=== PATIENT | female | born 1940 | race Caucasian/White ===

== ENCOUNTER 2017-10-20 06:25 | Inpatient (IN) | payer OTHER ==
[2017-10-12 12:52] VITALS: BMI 23.9
--- NOTE | 2017-10-19 10:49 | HP ---
Satellite [facility] - Chief Complaint Chief Complaint: right hip pain - Past Medical History Allergies/Adverse Reactions: Allergies Allergy/AdvReac Type Severity Reaction Status Date / Time Penicillins Allergy Severe Itching Verified 10/12/17 12:41 - Current Medications Current Medications: Home Medications Medication Instructions Recorded Acetaminophen [Tylenol -] 500 mg PO Q6H PRN 10/12/17 Aspirin [Aspirin EC] 81 mg PO DAILY 10/12/17 Docusate Sodium [Colace] 100 mg PO ASDIR PRN 10/12/17 Ferrous Sulfate [Feosol] 325 mg PO DAILY 10/12/17 Letrozole [Femara -] 2.5 mg PO DAILY 10/12/17 Oxycodone HCl 5 mg PO ASDIR PRN 10/12/17 Valsartan 160 mg PO DAILY 10/12/17 Satellite Physical Exam - Physical Examination General Appearance: Well Nourished, Well Developed, Alert & Oriented x3 ENT: Clear Lung: Normal air movement Heart: Regular rate & rhythm Extremities: Other (right hip- + ttp, decr rom, nvi xrays show grade 4 djd) Neurological: Intact, Alert, Oriented Satellite Impression/Plan - Impression/Plan Impression: right hip djd Operative Procedure: right jayson thr Date to be Performed: 10/20/17
[2017-10-20] MEDS ORDERED: GABAPENTIN 300 MG CAPSULE (FP) PO ONE (06:41)
[2017-10-20] MEDS ORDERED: CELECOXIB 200 MG CAPSULE PO ONE (06:41)
[2017-10-20] MEDS ORDERED: TRANEXAMIC ACID 1000 MG/10 ML VIAL IVPUSH ONE (06:41)
[2017-10-20] MEDS ORDERED: CEFAZOLIN 1 GM/D5W 1 GM/50 ML BAG IVPB ONE (06:41)
[2017-10-20] MEDS ORDERED: CELECOXIB 200 MG CAPSULE ONE (06:44)
[2017-10-20] MEDS ORDERED: GABAPENTIN 300 MG CAPSULE (FP) ONE (06:44)
[2017-10-20] MEDS ORDERED: DEXAMETHASONE SOD PHOSPHATE/PF 10 MG/ML SDV ONE (06:49)
[2017-10-20] MEDS ORDERED: EPINEPHrine/PF 1 MG/1 ML (1:1,000) AMPULE ONE (06:49)
[2017-10-20] MEDS ORDERED: BUPIVACAINE HCL/PF (5 MG/ML) 30 ML VIAL IJ ONE (06:49)
[2017-10-20] MEDS ORDERED: MIDAZOLAM HCL 2 MG/2 ML SINGLE DOSE VIAL ONE ×2 (06:49→07:32)
[2017-10-20] MEDS ORDERED: ceFAZolin SODIUM 1 GM VIAL ONE ×2 (07:05→07:32)
[2017-10-20] MEDS ORDERED: VANCOMYCIN 1,000 MG VIAL (RESTRICTED TO ID ONLY) ONE (07:05)
[2017-10-20] MEDS ORDERED: TRANEXAMIC ACID 1000 MG/10 ML VIAL ONE (07:32)
[2017-10-20] MEDS ORDERED: SUCCINYLCHOLINE CHLORIDE 200 MG/10 ML VIAL ONE (07:33)
[2017-10-20] MEDS ORDERED: PHENYLEPHRINE HCL 10 MG/1 ML SINGLE DOSE VIAL ONE (08:22)
[2017-10-20] MEDS ORDERED: ceFAZolin SODIUM 1 GM VIAL IVPB ONE (08:49)
[2017-10-20] MEDS ORDERED: VANCOMYCIN 1,000 MG VIAL (RESTRICTED TO ID ONLY) IVPB ONE (09:12)
[2017-10-20] MEDS ORDERED: MAGNESIUM HYDROX 2400MG/30ML ORAL SUSPENSION 30 ML CUP PO PRN (09:34)
[2017-10-20] MEDS ORDERED: MAG HYDROX/AL HYDROX/SIMETH 30 ML UNIT-DOSE CUP PO PRN (09:34)
[2017-10-20] MEDS ORDERED: ONDANSETRON 4 MG/2 ML VIAL IVPUSH PRN (09:34)
--- NOTE | 2017-10-20 09:36 | OP ---
Operative Note - Note: Operative Date: 10/20/17 (valarie) Pre-Operative Diagnosis: right hip djd Operation: right jayson thr Post-Operative Diagnosis: Same as Pre-op Surgeon: David Noonan Quality Control Director: Freedom He Anesthesiologist/BURLESQUE DANCER: Purnima Dennis Anesthesia: Spinal, Local Specimens Removed: femoral head Estimated Blood Loss (mls): 100 Operative Report Dictated: Yes
[2017-10-20] MEDS ORDERED: oxyCODONE HCL 5 MG TABLET PO PRN (09:42)
[2017-10-20] MEDS ORDERED: ACETAMINOPHEN 325 MG TABLET (FP) PO SCH (09:45)
[2017-10-20] MEDS ORDERED: LACTATED RINGERS SOLUTION 1,000 ML IV SCH (09:45)
--- NOTE | 2017-10-20 10:19 | SPEC ---
DATE OF OPERATION: 10/20/2017 PREOPERATIVE DIAGNOSIS: Degenerative joint disease right hip. POSTOPERATIVE DIAGNOSIS: Degenerative joint disease right hip. PROCEDURE PERFORMED: Right total hip replacement with robotic-assisted navigation (MAKOplasty). SURGICAL ATTENDING: David Noonan MD DIRECTOR REACTOR PROJECTS: NEREYDA Roger ANESTHESIA: Regional and spinal. CLOSURE: A press-fit number 5 Accolade II femoral stem, with a -4 MDM head, and a 50 press-fit PSL acetabulum. Number 1 Vicryl for fascia, 0 and 2-0 subcutaneous, 3-0 Monocryl subcuticular with skin glue for skin, 4-0 undyed Vicryl for pin sites. ESTIMATED BLOOD LOSS: Less than 100 mL. COMPLICATIONS: None. CONDITION: To the recovery room in stable condition. DESCRIPTION OF PROCEDURE: The patient was taken to the operating room on October 20, 2017. General and regional anesthesia was administered by the anesthesiologist. IV Kefzol and TXA were administered prophylactically prior to the case. The patient was placed in the lateral decubitus position will all prominences well-padded. The right hip area was prepped and draped in the usual sterile fashion. Using 3 small stab incisions over the iliac crest, 3 threaded pins were drilled in power fashion through the 2 tables of the crest. These pins were fastened and the navigation array for the Jorge navigation system. Next, a 12 to 15-cm curved longitudinal incision over the posterolateral aspect of the greater trochanter was incised. Hemostasis was achieved with Bovie cautery. Sharp dissection was carried down to level of the fascia. The fascia was opened the entire length of the incision, spreading the fibers of the gluteus camilla in the direction of origin. A Charnley retractor was placed in this layer. Care was taken not to impale the sciatic nerve. The short external rotators were detached off the insertion of the greater trochanter and peeled off the capsule. A posterior capsulotomy was then performed. A check point was malleted into the greater trochanter and a point on the inferior pole of the patella was obtained as well. These 2 points were used to assess the preoperative offset and limb lengths of the hip. The hip was then dislocated. The femoral neck was then osteotomized down to the appropriate level as directed by the navigation device. Anterior and posterior retractors were placed, exposing the acetabulum. A circumferential labral excision was performed. A check point was malleted into the acetabulum as well. Multiple sites inside the acetabulum and around the rim were utilized to register the acetabulum with the navigation device. An excellent registration of less than 0.5 mm was obtained. The hip was then reamed with the appropriate reamer down to the appropriate depth, with the appropriate orientation and version as assessed on our preoperative plan for this patient. The reamer was removed and the acetabulum was inspected to have good bleeding surfaces throughout. The real acetabular cup was then malleted down into place, with the holes in the appropriate position, until an excellent fixation was obtained. No screws were necessary. The navigation device ensured appropriate orientation and version, with the depth as predetermined. The appropriate liner was then clipped into place. Attention was directed to the femur. The proximal femur was prepared by use a box chisel, a canal finder and serial broaches until the broach achieved excellent rigidity in the proximal femur with the appropriate version being applied. A calcar planer was used to smooth off the calcar flush with the trial components. A trial reduction with the appropriate head was done, and the hip was reduced. The hip was taken through a range of motion from full extension with external rotation to marked flexion, and was stable at 90 degrees of flexion. It was stable to marked abduction and internal rotation, with a positive hang test and negative telescoping. Limb lengths were ascertained visually as well as with the navigation device to be within the targeted range for this patient. The trial component was removed. The real component was then malleted into place. The head was cold welded to the trunnion, and the hip was reduced. Range of motion, stability and limb lengths were as described in the trial component. Then the hip was pulse antibiotic irrigated. Vancomycin powder was placed in the hip joint. The capsule was closed. The fascia was then closed as well using number 1 Vicryl interrupted suture, 0 and 2-0 subcutaneous, and 3-0 Monocryl subcuticular, with skin glue for the skin. 4-0 undyed Vicryl was used to close the pin sites after the pins were removed. All check points were also removed. Sterile Aquacel dressing was applied. The patient was awakened from anesthesia and transferred into the supine position. Bilateral SCDs and an abduction pillow were placed. X-rays revealed excellent position of the components. The patient was transferred to the recovery room in stable condition, with no complications. Estimated blood loss was less than 100 mL. Brian SANCHEZ/[id number]
[2017-10-20] MEDS: oxyCODONE HCL 10 MG SUSTAINED ACTING TABLET PO SCH ×2 (14:42→21:39)
[2017-10-20] MEDS: VALSARTAN 160 MG TABLET (UD) PO SCH (14:42)
[2017-10-20] MEDS: LETROZOLE 2.5 MG TABLET (FP) PO SCH (14:42)
[2017-10-20] MEDS: FERROUS SO4 325 MG TABLET (FP) PO SCH (14:42)
[2017-10-20] MEDS: SENNOSIDES/DOCUSATE COMBO (SENNA PLUS) TABLET (UD) PO SCH ×2 (14:43→21:39)
[2017-10-20] MEDS: MULTIVITAMINS (DAILY MVI) TABLET (FP) PO SCH (14:43)
[2017-10-20] MEDS: PANTOPRAZOLE 40 MG TABLET (FP) PO SCH (14:43)
[2017-10-20] MEDS: CEFAZOLIN 1 GM/D5W 1 GRAM/50 ML BAG IVPB SCH (17:17)
[2017-10-20] MEDS: ACETAMINOPHEN 325 MG TABLET (FP) PO SCH ×2 (17:18→22:34)
[2017-10-21] MEDS: CEFAZOLIN 1 GM/D5W 1 GRAM/50 ML BAG IVPB SCH (00:10)
[2017-10-21] MEDS: ACETAMINOPHEN 325 MG TABLET (FP) PO SCH ×4 (04:41→23:00)
[2017-10-21] MEDS: oxyCODONE HCL 5 MG TABLET PO PRN ×4 (04:41→17:28)
[2017-10-21 08:17] LABS: HEMATOCRIT 32.5 % (32.4-45.2); HEMOGLOBIN 11.3 GM/dl (10.7-15.3); MCH 32.3 pg (25.7-33.7); MCHC 34.6 g/dl (32.0-36.0); MEAN CELL VOLUME 93.2 fl (80-96); MEAN PLT VOLUME 8.3 fl (7.5-11.1); PLATELET COUNT 317 K/MM3 (134-434); RBC 3.49 M/mm3 (3.60-5.2); WHITE BLOOD COUNT 10.6 K/mm3 (4.0-10.8)
[2017-10-21] MEDS: ASPIRIN 325 MG TABLET PO SCH (08:17)
[2017-10-21] MEDS: MULTIVITAMINS (DAILY MVI) TABLET (FP) PO SCH (09:12)
[2017-10-21] MEDS: FERROUS SO4 325 MG TABLET (FP) PO SCH (09:12)
[2017-10-21] MEDS: PANTOPRAZOLE 40 MG TABLET (FP) PO SCH (09:12)
[2017-10-21] MEDS: LETROZOLE 2.5 MG TABLET (FP) PO SCH (09:12)
[2017-10-21] MEDS: VALSARTAN 160 MG TABLET (UD) PO SCH (09:12)
[2017-10-21] MEDS: SENNOSIDES/DOCUSATE COMBO (SENNA PLUS) TABLET (UD) PO SCH ×2 (09:12→21:36)
[2017-10-21] MEDS: oxyCODONE HCL 10 MG SUSTAINED ACTING TABLET PO SCH ×2 (09:14→21:36)
--- NOTE | 2017-10-21 09:51 | PN ---
Progress Note (short form) - Note Progress Note: Ortho Pt seen and examined s/p right jayson thr pod #1 Selected Entries 10/21/17 05:00 Temperature 98.0 F Pulse Rate 75 Respiratory 18 Rate Blood Pressure 124/65 Laboratory Tests 10/21/17 07:30 WBC 10.6 Hgb 11.3 Hct 32.5 Plt Count 317 dressing c/d/i, calf soft, nt nvi a/p PT hip precautions dvt ppx pain control d/c home tomorrow if stable
--- NOTE | 2017-10-21 14:19 | PN ---
Progress Note (short form) - Note Progress Note: 77F POD1 s/p right THR under spinal anesthetic with peripheral nerve blocks for post operative pain. Pt states that pain is well controlled and does not report any anesthetic complications. AVSS. Sensory and motor function intact in bilateral lower extremities. Continue current regimen.
[2017-10-22] MEDS: ACETAMINOPHEN 325 MG TABLET (FP) PO SCH (05:36)
[2017-10-22 05:56] VITALS: BP 138/64; PULSE 89; TEMP 98.6
--- NOTE | 2017-10-22 08:26 | PN ---
Progress Note (short form) - Note Progress Note: Ortho Pt seen and examined s/p right jayson thr pod #2 Selected Entries 10/22/17 05:55 Temperature 98.6 F Pulse Rate 89 Respiratory 19 Rate Blood Pressure 138/64 Laboratory Tests 10/22/17 07:28 WBC Pending Hgb Pending Hct Pending Plt Count Pending dressing c/d/i, calf soft, nt nvi a/p PT hip precautions dvt ppx pain control d/c home today f/u in 1 week
--- NOTE | 2017-10-22 08:27 | DS ---
Physical Examination Vital Signs: Vital Signs Temperature 98.6 F 10/22/17 05:55 Pulse Rate 89 10/22/17 05:55 Respiratory Rate 19 10/22/17 05:55 Blood Pressure 138/64 10/22/17 05:55 O2 Sat by Pulse Oximetry (%) 99 10/22/17 05:55 Discharge Summary Reason For Visit: OSTEOARTHRITIS Procedures: Principal: s/p right jayson thr Hospital Course: admitted for elective right jayson thr, uneventful post-op, stable for d/c Condition: Good - Instructions Diet, Activity, Other Instructions: Post-op Instructions-Total Hip Replacement Call the office for a follow-up appointment in 1 week - [phone] Aspirin 325mg daily for 6 weeks. Pain medication was sent into your pharmacy. Apply Graduated Compression Stockings (TEDs) to both lower extremities- remove daily for hygiene ONLY Apply Sequential Compression Device (SCDs) to both Lower extremities remove for PT and hygiene ONLY Apply cold packs to affected area for 15 minutes every 2 hours. Physical Therapist will come to your home for the first 5 days. You will be set up with outpatient PT at your first post-operative visit. Patient may ambulate as tolerated-encourage self care (at least every 2-3 hours while awake) with walker or cane Maintain Aquacel (waterproof) dressing to operative wound (will be removed by surgeon at first office visit) Shower with Aquacel dressing in place-if Aquacel integrity compromised, remove and apply dry sterile dressing and notify Orthopedist. DO NOT SHOWER unless Orthopedists approves without Aquacel dressing CONTACT THE OFFICE FOR ANY CHANGE IN YOUR CONDITION (for example-fever greater than 102 degrees, excessive bleeding from operative site, purulent drainage, severe swelling or pain) GO TO THE EMERGENCY ROOM IF THERE IS A MEDICAL EMERGENCY Hip Precautions: * Keep a rolled towel under affected heel while in bed or chair (to keep knee in extension) * Dependent upon approach: * Posterior - do not cross legs; do not sit on low chairs or toilets. * If you have any questions, please do not hesitate to call the office - [phone]. Referrals: David Noonan MD [Staff Physician] - Disposition: VNS/HOME HEALTH CARE - Home Medications Comprehensive Discharge Medication List: Ambulatory Orders Docusate Sodium [Colace] 100 mg PO ASDIR PRN 01/22/18 Ferrous Sulfate [Feosol] 325 mg PO DAILY 10/12/17 Letrozole [Femara -] 2.5 mg PO DAILY 10/12/17 Valsartan 160 mg PO DAILY 10/12/17 Aspirin [ASA -] 325 mg PO DAILY@0800 tablet 10/20/17 Oxycodone HCl/Acetaminophen [Percocet 5-325 mg Tablet] 1 - 2 tab PO Q6H #50 tab MDD 8 10/20/17 Oxycodone HCl/Acetaminophen [Percocet 5-325 mg Tablet] 1 - 2 tab PO Q6H #50 tab MDD 8 10/22/17
[2017-10-22] MEDS: LETROZOLE 2.5 MG TABLET (FP) PO SCH (09:02)
[2017-10-22] MEDS: VALSARTAN 160 MG TABLET (UD) PO SCH (09:04)
[2017-10-22] MEDS: PANTOPRAZOLE 40 MG TABLET (FP) PO SCH (09:04)
[2017-10-22] MEDS: oxyCODONE HCL 10 MG SUSTAINED ACTING TABLET PO SCH (09:05)
[2017-10-22] MEDS: ASPIRIN 325 MG TABLET PO SCH (09:05)
[2017-10-22] MEDS: SENNOSIDES/DOCUSATE COMBO (SENNA PLUS) TABLET (UD) PO SCH (09:06)
[2017-10-22] MEDS: MULTIVITAMINS (DAILY MVI) TABLET (FP) PO SCH (09:06)
[2017-10-22] MEDS: FERROUS SO4 325 MG TABLET (FP) PO SCH (09:07)
[2017-10-22 09:16] LABS: HEMATOCRIT 32.7 % (32.4-45.2); HEMOGLOBIN 10.8 GM/dl (10.7-15.3); MCHC 33.1 g/dl (32.0-36.0); MEAN CELL VOLUME 93.8 fl (80-96); MEAN PLT VOLUME 8.3 fl (7.5-11.1); PLATELET COUNT 360 K/MM3 (134-434); RBC 3.49 M/mm3 (3.60-5.2); RDW 14.4 % (11.6-15.6); WHITE BLOOD COUNT 9.9 K/mm3 (4.0-10.8)
--- NOTE | 2017-10-28 16:29 | PATH ---
Surgical Pathology Report Patient Name: ZANE RINCON Med. Rec. #: [id number] /Age/Gender: 1940 (Age: 77) / F Account: [id number] Location: [facility] MED-SURG Taken: 10/20/2017 Received: 10/20/2017 Reported: 10/28/2017 Physicians: David Noonan M.D. Specimen(s) Received RIGHT FEMORAL HEAD Clinical History Osteoarthritis right hip Final Diagnosis FEMORAL HEAD, RIGHT, TOTAL HIP REPLACEMENT: DEGENERATIVE JOINT DISEASE. Electronically Signed Madalyn Dewitt M.D. Gross Description Received in formalin, labeled "right femoral head," is a 4.5 x 4.5 x 3.4 cm. femoral head with a 1.2 cm in length portion of femoral neck attached. The margin of resection is smooth. There is a 3.7 cm in greatest dimension area of eburnation present. The remaining articular surface is jj-yellow and diffusely granular. The underlying trabecular bone is yellow and hard. A hobbies and crafts sales representative section is submitted in one cassette, following decalcification. /10/21/2017 [facility]10/21/2017
== END 2017-10-22 12:39 | disposition home health service (06) | DRG 470 ==
LOC: FM/S 06:25
PROVIDERS: ADMIT Orthopaedic Surgery; ATTEND Orthopaedic Surgery
PROC: 8E0Y0CZ Robotic Assisted Procedure of Lower Extremity, Open Approach (ICD-10-PCS; 2017-10-20)
PROC: 0SR904A Replacement of Right Hip Joint with Ceramic on Polyethylene Synthetic Substitute, Uncemented, Open Approach (ICD-10-PCS; principal; 2017-10-20 08:33)
DX: M16.11 Unilateral primary osteoarthritis, right hip (principal)
CPT/HCPCS: 36415; 73502-TC-RT; 85027; 88304-TC; 88311-TC; 94010; 94760; 97116-GP; 97162-GP

== ENCOUNTER 2019-11-23 13:10 | Emergency (ER) | payer OTHER ==
[2019-11-23 13:19] VITALS: TEMP 98.3; BMI 26.8
--- NOTE | 2019-11-23 13:21 | PDOC ---
History of Present Illness - General Chief Complaint: Palpitations Stated Complaint: SENT BY ENDO FOR HIGH BLOOD PRESSURE Time Seen by Provider: 11/23/19 13:20 History Source: Patient Exam Limitations: No Limitations - History of Present Illness Initial Comments: 79 year old female with PMH HTN, HLD, breast CA (s/p lumpectomy + radiation x19 years ago) sent to ED from endoscopy suite for tachycardia. Pt reported last night she felt generally weak, but figured it was because she was fasting for the outpatient colonoscopy scheduled for today. She reported this AM she felt racing palpitations, but proceeded to her scheduled procedure. She denied chest pain, shortness of breath, lower extremity swelling, calf pain, fever, nausea, vomiting, back pain. PCP: Jason GONZALEZ General: admitted to generalized weakness. denied fever, chills. HEENT: denied sore throat, rhinorrhea, ear pain. Cardiovascular: admitted to palpitations. denied chest pain, syncope, diaphoresi s. Respiratory: denied shortness of breath, cough, sputum production, hemoptysis. Gastrointestinal: denied abdominal pain, nausea, vomiting, diarrhea, constipation, blood in stool. Genitourinary: denied dysuria, increased urinary frequency, hematuria, urinary incontinence, flank pain. Back: denied back pain. Musculoskeletal: denied joint pain, muscle pain, joint swelling. Neurological: denied headache, dizziness, numbness, tingling, weakness. Integumentary: denied rash, laceration, abrasion. Hematologic/Lymphatic: denied bruising or bleeding. PE Constitutional: Well-nourished, Well-developed, appearing stated age. HEENT: head is normocephalic, atraumatic. EOMI. PERRLA. ior pharyngeal erythema. no tonsillar swelling or exudates bilaterally. uvula midline. no peritonsillar swelling. no jaw tenderness or misalignment. Neck: supple. Full ROM. Cardiovascular: tachycardic. irregularly irregular heart rhythm. Normal S1 and S2. no murmurs. no pericardial friction rub. Respiratory: clear to auscultation bilaterally. no crackles, rhonchi or wheezing. no stridor. Gastrointestinal: soft, flat, nontender. normal bowel sounds. no rebound, guarding, or masses. Extremities: peripheral pulses intact and equal. no lower extremity edema noted. Neurological: CN 2-12 grossly intact. moves all four extremities. Psych: awake, alert, oriented x3. follows commands. answers questions appropriat william. Past History - Past Medical History Allergies/Adverse Reactions: Allergies Allergy/AdvReac Type Severity Reaction Status Date / Time Penicillins Allergy Severe Itching Verified 10/12/17 12:41 Home Medications: Ambulatory Orders Letrozole [Femara -] 2.5 mg PO DAILY 10/12/17 Amlodipine Besylate 5 mg PO DAILY 11/22/19 Aspirin [Lo-Dose Aspirin EC] 81 mg PO DAILY 11/22/19 Atorvastatin Calcium 20 mg PO DAILY 11/22/19 Losartan/Hydrochlorothiazide [Losartan-Hctz 100-12.5 mg Tab] 1 each PO DAILY 11/22/19 Apixaban [Eliquis] 5 mg PO BID #4 tablet 11/23/19 Diltiazem [Cardizem -] 30 mg PO TID #6 tablet 11/23/19 - Psycho Social/Smoking Cessation Hx Smoking History: Former smoker Have you smoked in the past 12 months: No If you are a former smoker, when did you quit?: 2004 Information on smoking cessation initiated: No Hx Alcohol Use: No Drug/Substance Use Hx: No Substance Use Type: Alcohol Hx Substance Use Treatment: No *Physical Exam - Vital Signs Last Vital Signs Temp Pulse Resp BP Pulse Ox 98.3 F 170 H 20 135/80 99 11/23/19 13:13 11/23/19 13:13 11/23/19 13:13 11/23/19 13:13 11/23/19 13:13 ED Treatment Course - LABORATORY CBC & Chemistry Diagram: 11/23/19 13:30 11/23/19 13:30 Medical Decision Making - Medical Decision Making 79 year old female with above PMH sent to ED from Endoscopy for tachycardia, pt c/o generalized weakness/palpitations. Initial Vital Signs Temp Pulse Resp BP Pulse Ox 98.3 F 170 H 20 135/80 99 11/23/19 13:13 11/23/19 13:13 11/23/19 13:13 11/23/19 13:13 11/23/19 13:13 Afebrile. Tachycardic. No tachypnea. Hypertensive. No hypoxia on room air. Labs ordered: CBC, CMP, troponin, TSH, coags Imaging ordered: CXR Medications ordered: diltiazem 15 mg IV once, normal saline bolus 1000 cc once EKG performed at 1316: rate 167, irregularly irregularly rhythm, normal axis, incomplete RBBB, no acute ST changes. CXR report: Name: ZANE RINCON DEPARTMENT OF RADIOLOGY Phys: BelenPrincess RESIDENT : 1940 Age: 79 Sex: F [facility] Acct: [id number] Loc: [address] Exam Date: 11/23/19 [id number] EXAM#: TYPE/EXAM: RESULT: [id number] RAD/CHEST X-RAY PORTABLE* Chest: Palpitations Single view of the chest reveals clear lungs, large heart, normal a mariluz, normal amee and sharp angles. The lungs are clear. The angles are sharp. The bones and soft tissues are intact. Impression: No acute chest pathology. Reported By: Piotr Hernadez MD 11/23/19 1348 11/23/19 14:03 EKG performed at 1400: rate 73, regular rhythm, normal axis, NJ 222, 1 PVC, no acute ST changes. Medications ordered: Diltiazem 30 mg PO once 11/23/19 15:27 Laboratory Last Values WBC 7.1 K/mm3 (4.0-10.0) 11/23/19 13:30 RBC 4.13 M/mm3 (3.60-5.2) 11/23/19 13:30 Hgb 13.2 GM/dL (10.7-15.3) 11/23/19 13:30 Hct 38.5 % (32.4-45.2) 11/23/19 13:30 MCV 93.2 fl (80-96) 11/23/19 13:30 MCH 31.8 pg (25.7-33.7) 11/23/19 13:30 MCHC 34.1 g/dl (32.0-36.0) 11/23/19 13:30 RDW 13.9 % (11.6-15.6) 11/23/19 13:30 Plt Count 334 K/MM3 (134-434) 11/23/19 13:30 MPV 7.5 fl (7.5-11.1) 11/23/19 13:30 Absolute Neuts (auto) 4.3 K/mm3 (1.5-8.0) 11/23/19 13:30 Neutrophils % 59.8 % (42.8-82.8) 11/23/19 13:30 Lymphocytes % 26.4 % (8-40) 11/23/19 13:30 Monocytes % 12.5 % (3.8-10.2) H 11/23/19 13:30 Eosinophils % 0.5 % (0-4.5) 11/23/19 13:30 Basophils % 0.8 % (0-2.0) 11/23/19 13:30 Nucleated RBC % 0 % (0-0) 11/23/19 13:30 PT with INR 11.60 SEC (9.7-13.0) 11/23/19 13:30 INR 0.98 (0.83-1.09) 11/23/19 13:30 PTT (Actin FS) 32.4 SECONDS (25.2-36.5) 11/23/19 13:30 Sodium 139 mmol/L (136-145) 11/23/19 13:30 Potassium 3.3 mmol/L (3.5-5.1) L 11/23/19 13:30 Chloride 100 mmol/L (98-107) 11/23/19 13:30 Carbon Dioxide 29 mmol/L (21-32) 11/23/19 13:30 Anion Gap 9 MMOL/L (8-16) 11/23/19 13:30 BUN 16.3 mg/dL (7-18) 11/23/19 13:30 Creatinine 0.9 mg/dL (0.55-1.3) 11/23/19 13:30 Est GFR (CKD-EPI)AfAm 70.98 11/23/19 13:30 Est GFR (CKD-EPI)NonAf 61.24 11/23/19 13:30 Random Glucose 99 mg/dL (74-106) 11/23/19 13:30 Calcium 9.6 mg/dL (8.5-10.1) 11/23/19 13:30 Magnesium 2.5 mg/dL (1.8-2.4) H 11/23/19 13:30 Total Bilirubin 0.8 mg/dL (0.2-1) 11/23/19 13:30 AST 31 U/L (15-37) 11/23/19 13:30 ALT 41 U/L (13-61) 11/23/19 13:30 Alkaline Phosphatase 93 U/L (45-117) 11/23/19 13:30 Creatine Kinase 70 U/L (26-192) 11/23/19 13:30 Troponin I < 0.02 ng/ml (0.00-0.05) 11/23/19 13:30 Total Protein 7.3 g/dl (6.4-8.2) 11/23/19 13:30 Albumin 4.0 g/dl (3.4-5.0) 11/23/19 13:30 TSH 1.50 uIU/ml (0.358-3.74) 11/23/19 13:30 No leukocytosis. No anemia. No electrolyte abnormalities. TSH wnl. No BRYAN. Troponin undetectable CHADS-VASc Score for Atrial Fibrillation Stroke Risk from [email or web address] on 11/23/2019 All calculations should be rechecked by clinician prior to use RESULT SUMMARY: 4 points Stroke risk was 4.8% per year in >90,000 patients (the [place] Atrial Fibrillation Cohort Study) and 6.7% risk of stroke/TIA/systemic embolism. -One recommendation suggests a 0 score is low risk and may not require anticoagulation; a 1 score is low-moderate risk and should consider antiplatelet or anticoagulation, and score 2 or greater is moderate-high risk and should otherwise be an anticoagulation candidate. INPUTS: Age > 2 = ?75 Sex > 1 = Female CHF history > 0 = No Hypertension history > 1 = Yes Stroke/TIA/thromboembolism history > 0 = No Vascular disease history (prior AK, peripheral artery disease, or aortic plaque) > 0 = No Diabetes history > 0 = No Pt has had no recurrence of symptoms, reported she is feeling well and would prefer to be discharged. No recurrence of tachycardia. Lam Adame (PCP) paged at [phone]. 11/23/19 15:[address] Figueredo, who stated she will see the pt in the office tomorrow, set up cardiology. She was comfortable with plan for care. Pt to be discharged on Eliquis and Diltiazem. First dose Eliquis 5 mg PO once given here. Discharge - Discharge Information Problems reviewed: Yes Clinical Impression/Diagnosis: New onset atrial fibrillation Condition: Improved Disposition: HOME - Admission No - Additional Discharge Information Prescriptions: Apixaban [Eliquis] 5 mg PO BID #4 tablet Diltiazem [Cardizem -] 30 mg PO TID #6 tablet - Follow up/Referral Referrals: Ana Figueredo [Primary Care Provider] - - Patient Discharge Instructions Patient Printed Discharge Instructions: DI for Atrial Fibrillation, Apixaban Additional Instructions: Follow up with your PRIMARY CARE DOCTOR tomorrow. Your primary care doctor will ensure you have an appointment and are seen by cardiology. You are being started on a blood thinning medication - Eliquis - this is to reduce your risk of stroke. You are being started on a new blood pressure medication - Diltiazem - this is to reduce your heart rate. Take all medications as prescribed on label. Bring all medication bottles and paperwork you were given today to your appointment with your PMD and fudge candy maker. Return to the Emergency Department for increasing pain, chest pain, shortness of breath, vomiting, lightheadedness, increasing weakness, passing out or any other new, worsening or concerning symptoms. - Post Discharge Activity
[2019-11-23] MEDS ORDERED: SODIUM CHLORIDE 1,000 ML IV STA (13:28)
[2019-11-23] MEDS ORDERED: dilTIAZem HCL 50 MG/10 ML - 10 ML VIAL IVPUSH ONE (13:35)
[2019-11-23] MEDS ORDERED: dilTIAZem HCL 125 MG/25 ML - 25 ML VIAL ONE (13:44)
[2019-11-23] MEDS ORDERED: dilTIAZem HCL 30 MG TABLET (FP) PO ONE (14:02)
[2019-11-23 14:07] LABS: BASO % 0.8 % (0-2.0); EOS % 0.5 % (0-4.5); HEMATOCRIT 38.5 % (32.4-45.2); HEMOGLOBIN 13.2 GM/dL (10.7-15.3); LYMPH % 26.4 % (8-40); MCH 31.8 pg (25.7-33.7); MCHC 34.1 g/dl (32.0-36.0); MEAN CELL VOLUME 93.2 fl (80-96); MEAN PLT VOLUME 7.5 fl (7.5-11.1); MONO % 12.5 % (3.8-10.2); NEUT % 59.8 % (42.8-82.8); PLATELET COUNT 334 K/MM3 (134-434); RBC 4.13 M/mm3 (3.60-5.2); RDW 13.9 % (11.6-15.6); WHITE BLOOD COUNT 7.1 K/mm3 (4.0-10.0)
[2019-11-23] MEDS ORDERED: dilTIAZem HCL 30 MG TABLET (FP) ONE (14:09)
[2019-11-23 14:18] LABS: INR 0.98 (0.83-1.09); PROTHROMBIN TIME (PATIENT) 11.6 SEC (9.7-13.0)
[2019-11-23 14:20] LABS: ACTIVATED PTT 32.4 SECONDS (25.2-36.5)
--- NOTE | 2019-11-23 14:22 | PDOC ---
Documentation entered by Franc Ram SCRIBE, acting as scribe for Crystal Acharya MD. Crystal Acharya MD: This documentation has been prepared by the Yo mackay Elijah, SCRIBE, under my direction and personally reviewed by me in its entirety. I confirm that the documentation accurately reflects all work, treatment, procedures, and medical decision making performed by me. Attending Attestation - Resident Resident Name: Princess Glover - ED Attending Attestation I have performed the following: I have examined & evaluated the patient, The case was reviewed & discussed with the resident, I agree w/resident's findings & plan, Exceptions are as noted - HPI HPI: 11/23/19 13:32 Patient is a 79 year old female with a significant pmh of HTN, HLD, breast CA who presents today from the Endoscopy Suite with Tachycardia and Hypertension. Patient was discovered to have new onset Afib and as a result was sent to the ER. Patient denies any complaints at this time. Allergies: Penicillins PCP: Dr. Figueredo - Physicial Exam PE: 11/23/19 13:56 GENERAL: Awake, alert, and fully oriented, in no acute distress HEAD: No signs of trauma EYES: PERRLA, EOMI, sclera anicteric, conjunctiva clear ENT: Auricles normal inspection, hearing grossly normal, nares patent, oropharynx clear without exudates. Moist mucosa NECK: Normal ROM, supple, no lymphadenopathy, JVD, or masses LUNGS: Breath sounds equal, clear to auscultation bilaterally. No wheezes, and no crackles HEART: +Tachycardia ABDOMEN: Soft, nontender, normoactive bowel sounds. No guarding, no rebound. No masses EXTREMITIES: Normal range of motion, no edema. No clubbing or cyanosis. No cords, erythema, or tenderness NEUROLOGICAL: Cranial nerves II through XII grossly intact. Normal speech, normal gait SKIN: Warm, Dry, normal turgor, no rashes or lesions noted. - Medical Decision Making 11/23/19 14:21 [id number] w/ new onset of a.fib w/ RVR in setting of decreased PO intake and bowel prep for colonoscopy. Pt is well appearing and denies chest pain/palpitatpions/ sob. -labs - cardaic monitor - ekg - rate control - d/w PMD - dispo per results.
[2019-11-23 14:58] LABS: BILIRUBIN,TOTAL 0.8 mg/dL (0.2-1); BLOOD UREA NITROGEN 16.3 mg/dL (7-18); CALCIUM 9.6 mg/dL (8.5-10.1); CREATININE 0.9 mg/dL (0.55-1.3); MAGNESIUM 2.5 mg/dL (1.8-2.4); POTASSIUM 3.3 mmol/L (3.5-5.1); TOT PROT 7.3 g/dl (6.4-8.2)
[2019-11-23] MEDS ORDERED: APIXABAN 5 MG TABLET PO ONE (15:55)
[2019-11-23] MEDS ORDERED: APIXABAN 5 MG TABLET ONE (15:57)
[2019-11-23 16:09] VITALS: BP 118/65; PULSE 101
--- NOTE | 2019-11-24 14:02 | EKG ---
Test Reason : Blood Pressure : / mmHG Vent. Rate : 073 BPM Atrial Rate : 073 BPM P-R Int : 222 ms QRS Dur : 116 ms QT Int : 364 ms P-R-T Axes : 094 062 038 degrees QTc Int : 401 ms SINUS RHYTHM WITH 1ST DEGREE A-V BLOCK WITH PREMATURE ATRIAL COMPLEXES WITH ABERRANT CONDUCTION LOW VOLTAGE QRS INCOMPLETE RIGHT BUNDLE BRANCH BLOCK NONSPECIFIC ST AND T WAVE ABNORMALITY ABNORMAL ECG WHEN COMPARED WITH ECG OF 23-NOV-2019 13:16, PREVIOUS ECG HAS UNDETERMINED RHYTHM, NEEDS REVIEW ST LESS DEPRESSED IN LATERAL LEADS T WAVE INVERSION NO LONGER EVIDENT IN INFERIOR LEADS T WAVE INVERSION LESS EVIDENT IN ANTERIOR LEADS Confirmed by JOANNE ALEGRIA MD ([id number]) on 11/24/2019 2:02:02 PM Referred By: Confirmed By:JOANNE ALEGRIA MD
--- NOTE | 2019-11-28 09:40 | EKG ---
Test Reason : Blood Pressure : / mmHG Vent. Rate : 167 BPM Atrial Rate : 170 BPM P-R Int : 000 ms QRS Dur : 114 ms QT Int : 280 ms P-R-T Axes : 000 044 -39 degrees QTc Int : 467 ms SUPRAVENTRICULAR TACHYCARDIA INCOMPLETE RIGHT BUNDLE BRANCH BLOCK ABNORMAL ECG WHEN COMPARED WITH ECG OF 23-NOV-2019 12:40, Rate has increased Confirmed by Katherine Monsalve ([id number]) on 11/28/2019 9:39:31 AM Referred By: Confirmed By:Katherine Monsalve
== END 2019-11-23 16:09 | disposition home or self-care (01) ==
LOC: JER 13:10
PROC: 3E033GC Introduction of Other Therapeutic Substance into Peripheral Vein, Percutaneous Approach (ICD-10-PCS; principal; 2019-11-23)
PROC: 3E0337Z Introduction of Electrolytic and Water Balance Substance into Peripheral Vein, Percutaneous Approach (ICD-10-PCS; 2019-11-23)
DX: I48.91 Unspecified atrial fibrillation (principal); Z88.0 Allergy status to penicillin; I10 Essential (primary) hypertension; E78.5 Hyperlipidemia, unspecified; Z85.3 Personal history of malignant neoplasm of breast
CPT/HCPCS: 36415; 71045-TC-FY; 80053; 82550; 83735; 84443; 84484; 85025; 85610; 85730; 93005; 93010; 99285-25; J7030